=== PATIENT | female | born 1950 | race Caucasian/White ===

== ENCOUNTER 2023-03-06 17:16 | Inpatient (IN) | payer MEDICARE, OTHER ==
[2023-03-06 17:26] VITALS: BMI 26.0
[2023-03-06] MEDS ORDERED: Glycopyrrolate 0.4 MG/ 2 ML VIAL SLOW IVP PRN (17:56)
[2023-03-06] MEDS ORDERED: Ondansetron PF 4 MG/2 ML Vial IVP PRN (18:00)
[2023-03-06] MEDS ORDERED: Haloperidol Lactate 5 MG/ML VIAL SLOW IVP PRN (18:00)
[2023-03-06] MEDS ORDERED: Acetaminophen 325 MG TAB PO PRN (18:00)
[2023-03-06] MEDS ORDERED: Scopolamine 1.5 mg/72 hour Patch TOP PRN (18:00)
[2023-03-06] MEDS: Budesonide 0.5 MG/2 ML NEB NEB SCH (18:50)
[2023-03-06] MEDS: busPIRone HCl 5 MG TAB PO SCH (21:14)
[2023-03-06] MEDS: methylPREDNISolone Sod Succ 40 MG VIAL IVP SCH (21:15)
[2023-03-06] MEDS: Morphine 2 MG/ML VIAL SLOW IVP PRN (22:14)
[2023-03-06] MEDS: Lorazepam 2 MG/ML VIAL SLOW IVP PRN (22:57)
[2023-03-07] MEDS: Morphine 2 MG/ML VIAL SLOW IVP PRN ×3 (04:27→11:29)
[2023-03-07] MEDS: Lorazepam 2 MG/ML VIAL SLOW IVP PRN ×4 (04:28→21:00)
[2023-03-07] MEDS: Budesonide 0.5 MG/2 ML NEB NEB SCH ×2 (07:30→19:07)
[2023-03-07] MEDS: methylPREDNISolone Sod Succ 40 MG VIAL IVP SCH ×2 (08:07→20:07)
[2023-03-07] MEDS: Digoxin 0.125 MG TAB PO SCH (08:11)
[2023-03-07] MEDS: Aspirin 81 mg Enteric Coated Tablet PO SCH (08:11)
[2023-03-07] MEDS: Hydroxyurea 500 MG CAP PO SCH (08:12)
[2023-03-07] MEDS: Polyethylene Glycol 3350 17 GM Packet PO SCH (08:13)
[2023-03-07] MEDS: busPIRone HCl 5 MG TAB PO SCH ×3 (08:17→20:07)
[2023-03-08] MEDS: Ipratropium/Albuterol 3 ML NEB NEB PRN (01:25)
[2023-03-08] MEDS: Morphine 2 MG/ML VIAL SLOW IVP PRN ×6 (02:09→18:12)
[2023-03-08] MEDS: Lorazepam 2 MG/ML VIAL SLOW IVP PRN ×4 (05:38→22:58)
[2023-03-08] MEDS: Budesonide 0.5 MG/2 ML NEB NEB SCH ×2 (07:22→18:30)
[2023-03-08] MEDS: Polyethylene Glycol 3350 17 GM Packet PO SCH (08:31)
[2023-03-08] MEDS: methylPREDNISolone Sod Succ 40 MG VIAL IVP SCH ×2 (08:31→21:07)
[2023-03-08] MEDS: Aspirin 81 mg Enteric Coated Tablet PO SCH (08:31)
[2023-03-08] MEDS: busPIRone HCl 5 MG TAB PO SCH ×3 (08:31→21:07)
[2023-03-08] MEDS: Digoxin 0.125 MG TAB PO SCH (08:31)
[2023-03-09] MEDS: Morphine 2 MG/ML VIAL SLOW IVP PRN ×3 (05:17→18:54)
[2023-03-09] MEDS: Lorazepam 2 MG/ML VIAL SLOW IVP PRN (06:09)
[2023-03-09] MEDS: Budesonide 0.5 MG/2 ML NEB NEB SCH ×2 (07:40→19:37)
[2023-03-09] MEDS: busPIRone HCl 5 MG TAB PO SCH ×3 (09:00→15:00)
[2023-03-09] MEDS: Digoxin 0.125 MG TAB PO SCH ×2 (10:28→11:35)
[2023-03-09] MEDS: Polyethylene Glycol 3350 17 GM Packet PO SCH ×2 (10:29→11:35)
[2023-03-09] MEDS: Aspirin 81 mg Enteric Coated Tablet PO SCH ×2 (10:29→11:35)
[2023-03-09] MEDS: methylPREDNISolone Sod Succ 40 MG VIAL IVP SCH (10:29)
[2023-03-09] MEDS: Hydroxyurea 500 MG CAP PO SCH ×2 (10:30→11:36)
[2023-03-09] MEDS ORDERED: Glycopyrrolate 0.2 MG/ML 5 ML SYRINGE SLOW IVP PRN (18:15)
[2023-03-10] MEDS: Morphine 2 MG/ML VIAL SLOW IVP PRN ×6 (00:29→21:09)
[2023-03-10] MEDS: Lorazepam 2 MG/ML VIAL SLOW IVP PRN ×2 (05:54→15:41)
[2023-03-10] MEDS ORDERED: Glycopyrrolate 0.4 MG/ 2 ML VIAL SLOW IVP PRN (06:00)
[2023-03-10] MEDS: Budesonide 0.5 MG/2 ML NEB NEB SCH ×2 (07:05→20:30)
[2023-03-10] MEDS: Ipratropium/Albuterol 3 ML NEB NEB PRN (07:10)
[2023-03-10] MEDS: methylPREDNISolone Sod Succ 40 MG VIAL IVP SCH (09:15)
[2023-03-10] MEDS: Glycopyrrolate 0.2 MG/ML 5 ML SYRINGE SLOW IVP PRN ×2 (13:30→21:09)
[2023-03-11] MEDS: Morphine 2 MG/ML VIAL SLOW IVP PRN ×3 (01:03→09:52)
[2023-03-11] MEDS: Ipratropium/Albuterol 3 ML NEB NEB PRN (07:55)
[2023-03-11] MEDS: Budesonide 0.5 MG/2 ML NEB NEB SCH (07:55)
[2023-03-11] MEDS: methylPREDNISolone Sod Succ 40 MG VIAL IVP SCH (08:20)
[2023-03-11] MEDS: Glycopyrrolate 0.2 MG/ML 5 ML SYRINGE SLOW IVP PRN ×2 (09:35→14:05)
[2023-03-11 09:46] VITALS: BP 136/89
[2023-03-11] MEDS: Lorazepam 2 MG/ML VIAL SLOW IVP PRN ×3 (09:46→17:21)
[2023-03-11] MEDS ORDERED: Morphine 4 MG/ML VIAL SLOW IVP SCH (11:00)
[2023-03-11] MEDS: Morphine 4 MG/ML VIAL SLOW IVP PRN ×6 (12:10→20:59)
[2023-03-11 21:58] VITALS: TEMP 98.8
== END 2023-03-12 00:03 | disposition expired | DRG 951 ==
LOC: CSHICU 17:16 → CSHTELE 03-08 20:25
PROVIDERS: ADMIT Family Medicine; ATTEND Family Medicine
DX: Z51.5 Encounter for palliative care (principal); J44.1 Chronic obstructive pulmonary disease with (acute) exacerbation; I48.91 Unspecified atrial fibrillation; I25.10 Atherosclerotic heart disease of native coronary artery without angina pectoris; I10 Essential (primary) hypertension; E78.5 Hyperlipidemia, unspecified; Z88.1 Allergy status to other antibiotic agents; D75.839 Thrombocytosis, unspecified; Z86.711 Personal history of pulmonary embolism
CPT/HCPCS: 94640; 94760; 94762; J2060; J2270; J2272; J2920; J7620; J7626